=== PATIENT | male | born 1995 | race Caucasian/White ===

== ENCOUNTER 2018-01-08 18:37 | Emergency (ER) | payer OTHER ==
[2018-01-08] MEDS ORDERED: AZITHROMYCIN 250 MG TABLET PO ONE (20:42)
[2018-01-08] MEDS ORDERED: LIDOCAINE 1% INJ-PF (10 MG/ML) 30 ML SDV INJ ONE (20:42)
[2018-01-08] MEDS ORDERED: CEFTRIAXONE INJ 250 MG VIAL IM ONE (20:42)
--- NOTE | 2018-01-08 20:48 | ER Document Report ---
HPI - HPI Pain Level: Denies Notes: Patient is a 22-year-old male with no significant past medical history who presents to the ED complaining of possible exposure to chlamydia 2 days ago. Patient states that he had sexual intercourse with a girl who also may have been exposed to chlamydia prior. Patient states that he is not having any urethral discharge, rash, or other symptoms. Patient states he just wants to be treated. He has no allergy to antibiotics. Denies any headache, fever, URI , sore throat, chest pain, palpitations, syncope, cough, shortness of breath, wheeze, dyspnea, abdominal pain, nausea/vomiting/diarrhea, urinary retention, dysuria, hematuria, loss of control of bowel or bladder, numbness/tingling, muscle paralysis/weakness, or rash. - ROS Systems Reviewed and Negative: Yes All other systems reviewed and negative Past Medical History - Social History Smoking Status: Current Every Day Smoker Frequency of alcohol use: None Drug Abuse: None Family History: Reviewed & Not Pertinent Patient has suicidal ideation: No Patient has homicidal ideation: No Renal/ Medical History: Denies: Hx Peritoneal Dialysis Past Surgical History: Reports: Hx Orthopedic Surgery Vertical Provider Document - CONSTITUTIONAL Agree With Documented VS: Yes Notes: PHYSICAL EXAMINATION: GENERAL: Well-appearing, well-nourished and in no acute distress. LUNGS: Breath sounds clear to auscultation bilaterally and equal. No wheezes rales or rhonchi. HEART: Regular rate and rhythm without murmurs, rubs, gallops. ABDOMEN: Soft, nontender, nondistended abdomen. No guarding, no rebound. No masses appreciated. Normal bowel sounds present. No CVA tenderness bilaterally. : No obvious inguinal lymphadenopathy or hernia noted. No urethral discharge. There is no erythema, lesions, ulcerations, or swelling noted. Nontender to palpation of the penis, testes, and scrotum. Extremities: No cyanosis, clubbing, or edema b/l. Peripheral pulses 2+. Capillary refill less than 3 seconds. NEUROLOGICAL: Normal speech, normal gait. PSYCH: Normal mood, normal affect. SKIN: Warm, Dry, normal turgor, no rashes or lesions noted. Course - Re-evaluation Re-evalutation: 01/08/18 20:45 Patient is an afebrile, well-hydrated, 22-year-old male who presents to the ED with possible exposure to chlamydia. Vitals are acceptable without any significant tachycardia, tachypnea, or hypoxia. PE is otherwise unremarkable. Chlamydia and gonorrhea tests are pending. Patient did not want any other further testing performed including a urinalysis. Patient is currently asymptomatic and without any other physical exam findings. Rocephin and Zithromax given today. Patient is nontoxic-appearing and is tolerating p.o. without difficulties. No other labs or imaging warranted at this time based on H&P. Recheck with health department in 3-5 days. Return to the ED with any worsening/concerning symptoms otherwise as reviewed in discharge. Patient is in agreement. - Vital Signs Vital signs: Temp Pulse Resp BP Pulse Ox 98.4 F 83 18 119/76 98 01/08/18 19:13 01/08/18 19:13 01/08/18 19:13 01/08/18 19:13 01/08/18 19:13 Discharge - Discharge Clinical Impression: Possible exposure to STD Condition: Stable Disposition: HOME, SELF-CARE Additional Instructions: Push fluids (i.e. water, cranberry juice) Proper hygenic technique Keep the skin clean Safe sexual practices with condoms everytime Tylenol/ibuprofen as needed Check in with the health department this week for further testing* Your chlamydia/Ghon test are pending and you will be notified if positive results; you may call in 1 day for the results as well Return immediately if symptoms worsen F/u with your PCM in 3-5 days for a recheck Consider consult with a Urologist for ongoing/worsening symptoms. Return to the ED with any development of MILLS/fever, trouble with vision, eye redness, worsening pain, urethral discharge, urinary retention, blood in the urine, flank pain, abdominal pain, n/v, Chest Pain, shortness of breath, joint pains, trouble breathing, or any other worsening/concerning symptoms as needed otherwise. Forms: Smoking Cessation Education [facility] - Follow up in 3-5 days
[2018-01-08 21:11] VITALS: BP 128/76
[2018-01-08 22:34] LABS: CHLAM PCR NOT DETECTED (NOT DETECT); GON PCR NOT DETECTED (NOT DETECT)
== END 2018-01-08 21:11 | disposition home or self-care (01) ==
LOC: ER 18:37
DX: Z20.2 Contact with and (suspected) exposure to infections with a predominantly sexual mode of transmission (principal); F17.200 Nicotine dependence, unspecified, uncomplicated
CPT/HCPCS: 99283; 96372; 87491; 87591; J3490; J0696